=== PATIENT | female | born 1995 | race Caucasian/White ===

== ENCOUNTER 2023-04-23 08:15 | Emergency (ER) | payer OTHER, SELFPAY ==
[2023-04-23 08:20] VITALS: BP 131/85; PULSE 95; RESP 20; TEMP 36.5; O2SAT 100; BMI 20.4
--- NOTE | 2023-04-23 08:36 | ED_ITS ---
HPI - General Adult General Chief complaint: Sore Throat Stated complaint: Throats sore Time Seen by Provider: 04/23/23 08:27 History of Present Illness HPI narrative: This 28-year-old female comes in reporting sore throat for the past 2 days. She states that she had a fever initially. She does not report any cough. She does report some pain in her left ear. She does not have any shortness of breath. Related Data Previous Rx's Medication Instructions Recorded ketorolac 10 mg tablet 10 mg PO Q8H 5 days #15 tabs 04/23/23 Allergies Allergy/AdvReac Type Severity Reaction Status Date / Time No Known Drug Allergies Allergy Verified 04/23/23 08:20 Review of Systems Status of ROS: Reports: 10 or more systems reviewed and unremarkable except as noted in History and below Narrative: Constitutional: No fevers, no weight gain or loss. Eyes: No discharge. No vision changes. HENT: No congestion. Sore throat and pain in her left ear. Cardiovascular: No chest pain, no palpitations. Respiratory: No shortness of breath, no wheezes, no cough. Gastrointestinal: No abdominal pain, no vomiting, no diarrhea. Genitourinary: No dysuria, no hematuria. Musculoskeletal: Normal range of motion. Skin: No rashes, no pruritis. Neurological: No dizziness, weakness, sensory change, speech change. Endo/Heme/Allergies: No bruising or bleeding. No polydipsia. Pysch: no suicidality, no anxiety, no insomnia. All other systems reviewed and are negative. PFSH PFSH Social History Smoking Status: Never smoker Do you use any of these nicotine containing products: None Second hand tobacco smoke exposure: No How often do you have a drink containing alcohol: 2-4 times a month How many standard drinks containing alcohol do you have on a typical day: 1 or 2 How often do you have six or more drinks on one occasion: Never AUDIT-C Alcohol total score: 2 Non-prescribed substance use: denies use service: No Exam Narrative: Exam Narrative: Constitutional: Well-developed, well-nourished, no acute distress. HEENT: Normocephalic, atraumatic. Pharyngeal erythema without exudate. Tympanic membranes appear normal bilaterally. Neck: Normal range of motion. Nontender. Supple. Heart: Regular. No murmurs. Normal rate. Intact distal pulses. Lungs: Clear to auscultation. No chest discomfort. No wheezes, rhonchi, or rales. Abdomen: Normal bowel sounds. Nontender. No rebound tenderness. Genitalia: Deferred. Back: No midline tenderness. Normal range of motion. Extremities: Normal range of motion. No injury. Skin: Intact. No rash. Warm. No erythema or pallor. Neurologic: No altered sensation. No weakness. Alert and oriented. Psychiatric: No suicidality. No anxiety or depression. No insomnia. Nursing notes and vitals signs are reviewed. Const: Vital Signs, click to edit/add: Vital Signs - 24 hr 04/23/23 08:20 Temperature 97.7 F Pulse Rate [Pulse Oximeter] 95 Respiratory Rate 20 Blood Pressure [Ri ght Upper Arm] 131/85 Pulse Oximetry 100 Oxygen Delivery Me thod Room Air Course Vital Signs Vital signs: Initial Vital Signs Temperature 97.7 F 04/23/23 08:20 Temperature Source Temporal Artery Scan 04/23/23 08:20 Pulse Rate 95 04/23/23 08:20 Pulse Rhythm Regular 04/23/23 08:20 Respiratory Rate 20 04/23/23 08:20 Blood Pressure 131/85 04/23/23 08:20 Blood Pressure Mean 100 04/23/23 08:20 Blood Pressure Position Supine 04/23/23 08:20 Pulse Oximetry 100 04/23/23 08:20 Oxygen Delivery Method Room Air 04/23/23 08:20 Vital Signs Temperature 97.7 F 04/23/23 08:20 Pulse Rate 95 04/23/23 08:20 Respiratory Rate 20 04/23/23 08:20 Blood Pressure 131/85 04/23/23 08:20 Pulse Oximetry 100 04/23/23 08:20 Oxygen Delivery Method Room Air 04/23/23 08:20 Temperature 97.7 F 04/23/23 08:20 Pulse Rate 95 04/23/23 08:20 Respiratory Rate 20 04/23/23 08:20 Blood Pressure 131/85 04/23/23 08:20 Pulse Oximetry 100 04/23/23 08:20 Oxygen Delivery Method Room Air 04/23/23 08:20 Medical Decision Making MDM Narrative Medical decision making narrative: This patient has normal exam except for pharyngeal erythema. Her vital signs are normal. A rapid strep test is acquired and returns negative. Most likely this patient's symptoms are related to a virus. She did receive an oral dose of dexamethasone 10 mg. I did also provide a prescription for Toradol. I naman cribed signs and symptoms that would indicate a need for return and re- evaluation. Lab Data Labs: Lab Results 04/23/23 Range/Units 08:36 Group A Strep DNA NOT DETECTED (Not Detectd) Discharge Plan Discharge Clinical Impression: Pharyngitis Patient Disposition: Home, Self-Care Condition: Unchanged Additional Instructions: Take medication as needed and directed. Follow up with MD or return if worsening. Prescriptions: New ketorolac 10 mg tablet 10 mg PO Q8H 5 Days Qty: 15 0RF Follow Up/Referrals: Provider,Not a Local [Primary Care Provider] - Stand Alone Forms: [employer] Info Instructions
[2023-04-23] MEDS: dexAMETHasone 10 MG/ML inj PO (09:05)
[2023-04-23 09:14] LABS: Strep A DNA Probe* NOT DETECTED (Not Detectd)
== END 2023-04-23 09:27 | disposition home or self-care (01) ==
PROVIDERS: Emergency Provider Emergency Medicine Emergency Medical Services
DX: J02.9 Acute pharyngitis, unspecified (principal)
CPT/HCPCS: 87651; 99283; 99284; J1100